=== PATIENT | male | born 1955 | race Caucasian/White ===

== ENCOUNTER 2021-06-20 08:33 | Emergency (ER) | payer OTHER ==
--- NOTE | 2021-06-20 08:47 | EDM.PDOC ---
ED HPI GENERAL MEDICAL PROBLEM - General Chief Complaint: Gastrointestinal Problem Stated Complaint: NAUSEA/SENT FROM CLINIC FOR HIGH BLOOD PRESSURE Time Seen by Provider: 06/20/21 08:47 - History of Present Illness INITIAL COMMENTS - FREE TEXT/NARRATIVE: 65-year-old male sent to the emergency room by the walk-in clinic with severe hypertension and nausea. The patient was not allowed to be seen at the walk-in clinic due to his elevated hypertension he was sent here. Patient's been told he said elevated blood pressure in the past but not currently taking any blood pressure medications he does not have a regular healthcare provider. He has had some nausea for the last several days. Patient's has had nausea and vomiting for the last several days. Patient attributes this to being related to using marijuana that he perhaps was laced about this several weeks ago and stopped using about a week ago. He has assured me he will not use it again. She has not had any breathing difficulties shortness of breath or chest discomfort. And other than the intermittent nausea has been doing okay he has not had any diarrhea or constipation. - Related Data Allergies Allergy/AdvReac Type Severity Reaction Status Date / Time No Known Allergies Allergy Verified 06/20/21 08:44 Home Meds: Home Meds Metoprolol Tartrate 25 mg PO BID #30 tablet 06/20/21 [Rx] Past Medical History - Past Health History Medical/Surgical History: Denies Medical/Surgical History Social & Family History - Tobacco Use Tobacco Use Status *Q: Former Tobacco User Used Tobacco, but Quit: Yes Month/Year Tobacco Last Used: many years ago - Recreational Drug Use Recreational Drug Use: No ED ROS GENERAL - Review of Systems Review Of Systems: See Below Constitutional: Reports: No Symptoms HEENT: Reports: No Symptoms Respiratory: Reports: No Symptoms Cardiovascular: Reports: No Symptoms. Denies: Chest Pain, Dyspnea on Exertion Endocrine: Reports: No Symptoms GI/Abdominal: Reports: Nausea. Denies: Constipation, Diarrhea, Vomiting : Reports: No Symptoms Musculoskeletal: Reports: No Symptoms Skin: Reports: No Symptoms Neurological: Reports: No Symptoms Psychiatric: Reports: No Symptoms ED EXAM, GENERAL - Physical Exam Exam: See Below Exam Limited By: No Limitations General Appearance: Alert, No Apparent Distress Eye Exam: Bilateral Eye: EOMI, Normal Inspection, PERRL Ears: Normal External Exam, Normal Canal, Hearing Grossly Normal, Normal TMs, Other (Some mild scarring noted to both tympanic membranes) Nose: Normal Inspection, Normal Mucosa, No Blood Throat/Mouth: Normal Inspection, Normal Lips, Normal Teeth, Normal Gums, Normal Oropharynx, Normal Voice, No Airway Compromise Head: Atraumatic, Normocephalic Neck: Normal Inspection, Supple, Non-Tender, Full Range of Motion. No: Lymphadenopathy (L), Lymphadenopathy (R) Respiratory/Chest: No Respiratory Distress, Lungs Clear, Normal Breath Sounds Cardiovascular: Regular Rate, Rhythm, No Edema, No Murmur GI/Abdominal: Normal Bowel Sounds, Soft, Non-Tender, Other (obese) Back Exam: Normal Inspection. No: CVA Tenderness (L), CVA Tenderness (R) Extremities: Normal Inspection, No Pedal Edema Neurological: Alert, Oriented, Normal Cognition #1 Interpretation EKG Date: 06/20/21 Rhythm: Other (Normal sinus rhythm borderline tachycardia 99) Rate (Beats/Min): 99 [place]: Normal P-Wave: Present QRS: RBBB ST-T: Normal QT: Prolonged (Borderline prolonged) Comparison: NA - No Prior EKG EKG Interpretation Comments: Abnormal EKG Course - Vital Signs Last Recorded V/S: Last Vital Signs Temp 36.1 C 06/20/21 08:42 Pulse 64 06/20/21 14:09 Resp 16 06/20/21 09:33 BP 171/90 H 06/20/21 14:09 Pulse Ox 94 L 06/20/21 09:33 - Orders/Labs/Meds Orders: Active Orders 24 hr Category Date Time Status Cardiac Monitoring [RC] . DIRECTED Care 06/20/21 08:54 Active CORONAVIRUS COVID-19 PCR [facility] Stat Lab 06/20/21 12:20 Received Labs: Laboratory Tests 06/20/21 06/20/21 Range/Units 09:32 09:32 WBC 10.81 H (4.23-9.07) K/mm3 RBC 5.68 (4.63-6.08) M/mm3 Hgb 16.2 (13.7-17.5) gm/dl Hct 49.0 (40.1-51.0) % MCV 86.3 (79.0-92.2) fl MCH 28.5 (25.7-32.2) pg MCHC 33.1 (32.2-35.5) g/dl RDW Std Deviation 46.1 H (35.1-43.9) fL Plt Count 276 (163-337) K/mm3 MPV 9.5 (9.4-12.3) fl Neut % (Auto) 84.9 H (34.0-67.9) % Lymph % (Auto) 9.3 L (21.8-53.1) % [place] % (Auto) 5.5 (5.3-12.2) % Eos % (Auto) 0 L (0.8-7.0) Baso % (Auto) 0.1 (0.1-1.2) % Neut # (Auto) 9.19 H (1.78-5.38) K/mm3 Lymph # (Auto) 1.00 L (1.32-3.57) K/mm3 Pope # (Auto) 0.59 (0.30-0.82) K/mm3 Eos # (Auto) 0.00 L (0.04-0.54) K/mm3 Baso # (Auto) 0.01 (0.01-0.08) K/mm3 Sodium 139 (136-145) mEq/L Potassium 3.4 L (3.5-5.1) mEq/L Chloride 100 (98-107) mEq/L Carbon Dioxide 27 (21-32) mEq/L Anion Gap 15.4 H (5-15) BUN 16 (7-18) mg/dL Creatinine 0.9 (0.7-1.3) mg/dL Est Cr Clr Drug Dosing TNP Estimated GFR (MDRD) > 60 (>60) mL/min BUN/Creatinine Ratio 17.8 (14-18) Glucose 161 H (70-99) mg/dL Calcium 8.8 (8.5-10.1) mg/dL Total Bilirubin 0.5 (0.2-1.0) mg/dL AST 28 (15-37) U/L ALT 48 (16-63) U/L Alkaline Phosphatase 78 (46-116) U/L Troponin I < 0.017 (0.00-0.056) ng/mL Total Protein 7.6 (6.4-8.2) g/dl Albumin 4.3 (3.4-5.0) g/dl Globulin 3.3 gm/dL Albumin/Globulin Ratio 1.3 (1-2) Meds: Medications Discontinued Medications Generic Name Dose Route Start Last Admin Trade Name Ashleigh PRN Reason Stop Dose Admin Metoprolol Tartrate 5 mg 06/20/21 11:15 06/20/21 11:24 Metoprolol Tartrate 5 Mg/5 Ml Sdv IVPUSH 06/20/21 11:16 5 mg ONETIME ONE Administration Metoprolol Tartrate 25 mg 06/20/21 13:06 06/20/21 13:28 Metoprolol Tartrate 25 Mg Tab PO 06/20/21 13:07 25 mg ONETIME ONE Administration Potassium Chloride 40 meq 06/20/21 11:32 06/20/21 12:23 Potassium Chloride 20 Meq Tab.Er PO 06/20/21 11:33 40 meq ONETIME ONE Administration - Re-Assessments/Exams Free Text/Narrative Re-Assessment/Exam: 06/20/21 11:31 I have watched his blood pressure it really has not trended down the way I had hoped it would. We will give 5 mg IV Lopressor anticipate start him on metoprolol as an outpatient. Potassium is also a little low at 3.4 we will give 40 mEq p.o. now. 06/20/21 14:40 The patient continues to feel better his pulse rate has dropped from the mid 60s to the mid 80s his systolic is consistently in 180-1 1 85 range. However, I will not adjust his medications beyond Lopressor 25 mg p.o. twice daily at this point symptomatically he is doing better and he needs close follow-up in the clinic. I have explained this to the patient and he agrees to follow-up with the clinic early this next week Departure - Departure Time of Disposition: 14:46 Disposition: Home, Self-Care 01 Clinical Impression: Severe hypertension - Discharge Information Referrals: PCP,None [Primary Care Provider] - Forms: ED Department Discharge Additional Instructions: Return to the emergency room with any questions problems or worsening symptoms. You have been started on Metroprolol this will lower your pulse and your blood pressure. Use caution with change of position especially going from sitting to standing or lying down to sitting and then to standing until you know how this will affect you. She will take metoprolol 25 mg twice daily. I anticipate your dose will need to be increased. However I want you to follow-up at your local clinic on [address] to have your blood pressure rechecked. Your prescription for the metoprolol is sent to [facility] pharmacy up by [place] you will need to take a dose this evening and then twice daily tomorrow. Sepsis Event Note (ED) - Evaluation Sepsis Screening Result: No Definite Risk - Focused Exam Vital Signs: Vital Signs Temp Pulse Pulse Resp BP BP Pulse Ox 06/20/21 14:09 64 171/90 H 06/20/21 13:28 84 191/92 H 06/20/21 12:00 87 166/85 H 06/20/21 11:24 96 183/93 H 06/20/21 09:33 100 16 185/93 H 94 L 06/20/21 08:42 36.1 C 108 H 16 203/162 H 96 - My Orders Last 24 Hours: My Active Orders 06/20/21 08:54 Cardiac Monitoring [RC] . DIRECTED 06/20/21 12:20 CORONAVIRUS COVID-19 PCR [facility] Stat - Assessment/Plan Last 24 Hours: My Active Orders 06/20/21 08:54 Cardiac Monitoring [RC] . DIRECTED 06/20/21 12:20 CORONAVIRUS COVID-19 PCR [facility] Stat
[2021-06-20] MEDS ORDERED: Metoprolol Tartrate 5 MG/5 ML SDV IVPUSH ONE (11:15)
[2021-06-20] MEDS ORDERED: Potassium Chloride 20 MEQ Tab.ER PO ONE (11:32)
[2021-06-20] MEDS ORDERED: Metoprolol Tartrate 25 MG Tab PO ONE (13:06)
== END 2021-06-20 15:15 | disposition home or self-care (01) ==
LOC: JD.ED 08:33
DX: I10 Essential (primary) hypertension (principal); I45.10 Unspecified right bundle-branch block; R94.31 Abnormal electrocardiogram [ECG] [EKG]; Z87.891 Personal history of nicotine dependence; Z20.822 Contact with and (suspected) exposure to COVID-19
CPT/HCPCS: 36415; 80053; 84484; 85025; 87635; 93005; 96374; 99283; A9270; J3490; U0002